=== PATIENT | female | born 1950 | race Caucasian/White ===

== ENCOUNTER → 2018-05-16 | Outpatient (CLI) | payer MEDICARE, OTHER ==
--- NOTE | 2018-05-16 14:14 | BD ---
EXAMINATION TYPE: Axial Bone Density DATE OF EXAM: 05/16/2018 COMPARISON: Prior DEXA bone scan September 10, 2010 CLINICAL HISTORY: Disorder of bone density per order. Height: 5 FT 5 1/2 IN Weight: 171 FRAX RISK QUESTIONS: Glucocorticoids (More than 3mos): YES (Ex: prednisone, prednisolone, methylprednisolone, dexamethasone, and hydrocortisone). History of Fracture in Adulthood: YES Secondary Osteoporosis: 3. Menopause before 45: YES RISK FACTORS HISTORY OF: Active: MODERATE Postmenopausal woman: AGE 47 Lost more than 2 inches in height since high school: YES MEDICATIONS: Prednisone or other steroids: ASTHMA INHALER How Lon-3 YEARS Additional Medications: QVAR, JUST STARTED ATORVASTATIN Additional History: EXAM MEASUREMENTS: Bone mineral densitometry was performed using the [employer] System. Bone mineral density as measured about the Lumbar spine is: ----- L1-L4(G/cm2): 1.255 T Score Values are as follows: ----- L2: 0.2 ----- L3: 0.6 ----- L4: 2.1 ----- L1-L4: 0.6 Bone mineral density has: INCREASED 8.3 % since study of: 2009 Bone mineral density about the R hip (g/cm2): 0.702 Bone mineral density about the L hip (g/cm2): 0.700 T Score values are as follows: -----R Neck: -2.4 -----L Neck: -2.4 -----R Total: -2.1 -----L Total: -2.3 Bone mineral density has: DECREASED -6.4 % since study of: 2009 IMPRESSION: Osteopenia (T Score between -2.5 and -1) in both hips is redemonstrated. Bone density decreased or di minished from prior. Bone density felt falsely elevated in low back due to reactive sclerosis as ther e is underlying scoliosis noted. There remains slightly increased risk of fracture and the patient may be considered for treatment. Re-Screen 2-5 years. NOTE: T-SCORE=SD OF THE YOUNG ADULT MEAN.
== END | disposition home or self-care (01) ==
LOC: RADBDWWP 13:10
PROVIDERS: ATTEND Internal Medicine
DX: M85.851 Other specified disorders of bone density and structure, right thigh (principal); M85.852 Other specified disorders of bone density and structure, left thigh; G95.89 Other specified diseases of spinal cord
CPT/HCPCS: 77080

== ENCOUNTER → 2018-08-07 | Outpatient (CLI) | payer MEDICARE, OTHER ==
--- NOTE | 2018-08-07 11:53 | US ---
EXAMINATION TYPE: US kidneys/renal and bladder DATE OF EXAM: 08/07/2018 COMPARISON: NONE CLINICAL HISTORY: R94.4 Abnormal kidney function studies. Recent abnormal labs EXAM MEASUREMENTS: Right Kidney: 11.0 x 4.0 x 4.7 cm Left Kidney: 10.4 x 5.2 x 4.6 cm Right Kidney: Appeared wnl Left Kidney: Appeared wnl Bladder: wnl Bilateral Jets seen: Yes There is no evidence for hydronephrosis at this point in time. No nephrolithiasis is seen. No estrella s are identified. The urinary bladder is anechoic. Bilateral ureteral jets are seen. IMPRESSION: Study is within normal limits.
== END | disposition home or self-care (01) ==
LOC: RADUSWWP 10:46
PROVIDERS: ATTEND Internal Medicine
DX: R94.4 Abnormal results of kidney function studies (principal)
CPT/HCPCS: 76770

== ENCOUNTER → 2019-02-01 | Outpatient (CLI) | payer MEDICARE ==
--- NOTE | 2019-02-01 10:32 | US ---
EXAMINATION TYPE: US abdomen complete DATE OF EXAM: 02/01/2019 COMPARISON: renal US dated 08/07/2018 CLINICAL HISTORY: R94.5 Abnormal results of liver function studies. EXAM MEASUREMENTS: Liver Length: 11.2 cm Gallbladder Wall: 0.2 cm CBD: 0.3 cm Spleen: 8.9 cm Right Kidney: 11.5 x 4.4 x 4.9 cm Left Kidney: 9.5 x 5.7 x 4.5 cm Pancreas: visualized portions wnl Liver: wnl Gallbladder: No stones seen Evidence for sonographic Teresa's sign: No CBD: wnl Spleen: wnl Right Kidney: No hydronephrosis or masses seen Left Kidney: No hydronephrosis or masses seen Upper IVC: wnl Abd Aorta: wnl The liver is homogenous. The intrahepatic portion of the IVC and proximal abdominal aorta are within normal limits. There is no evidence of cholelithiasis. Common bile duct is unremarkable. The visu alized portions of the pancreas are homogenous. The spleen is unremarkable. Kidneys are symmetric a nd free of hydronephrosis. No renal lesions are seen. IMPRESSION: Unremarkable abdominal ultrasound. Homogeneous hepatic echotexture despite the elevated l iver enzymes. No focal hepatic masses seen on today's examination. No sonographic evidence of choleli thiasis or acute cholecystitis.
== END | disposition home or self-care (01) ==
LOC: RADUSWWP 08:58
PROVIDERS: ATTEND Internal Medicine
DX: R94.5 Abnormal results of liver function studies (principal)
CPT/HCPCS: 76700

== ENCOUNTER → 2019-02-09 | Outpatient (CLI) | payer MEDICARE ==
--- NOTE | 2019-02-09 11:55 | CT ---
EXAMINATION TYPE: CT brain wo con DATE OF EXAM: 02/09/2019 COMPARISON: None HISTORY: Headaches CT DLP: 1053.9 mGycm Automated exposure control for dose reduction was used. TECHNIQUE: CT scan of the head is performed without contrast. FINDINGS: There is no acute intracranial hemorrhage, mass effect, or midline shift identified. The ventricles and sulci are within normal limits in size. The globes are intact. There is moderate mucosal thicken ing of the ethmoid sinuses extending into the frontal recesses with mild mucosal thickening in the fr ontal sinuses and scant mucosal thickening with inspissated secretions of the sphenoid sinuses. Polyp oid mucosal thickening of the left maxillary sinus is also present. There is some mucoperiosteal thic kening of the maxillary sinuses indicating a chronic component. Bilateral cerumen impaction is seen o f the external auditory canals. Scant fluid is seen within the inferior right mastoid air cells. Left mastoid air cells are well aerated. Punctate calcifications are noted within the frontal dermis. IMPRESSION: 1. No acute intracranial process. 2. Acute on chronic paranasal sinus disease (moderate in degree). 3. Scant amount of fluid within the right mastoid air cells. Correlate with point tenderness to exclu de mastoiditis.
== END | disposition home or self-care (01) ==
LOC: RADCTMAIN 11:18
PROVIDERS: ATTEND Internal Medicine
DX: R51 Headache (principal)
CPT/HCPCS: 70450

== ENCOUNTER → 2019-06-26 | Outpatient (CLI) | payer MEDICARE ==
--- NOTE | 2019-06-26 13:01 | US ---
EXAMINATION TYPE: US carotid duplex BILAT DATE OF EXAM: 06/26/2019 COMPARISON: NONE CLINICAL HISTORY: I65.23 Occlusion and Stenosis of Bilateral Carotid arteries. no symptoms, no h/o st roke EXAM MEASUREMENTS: RIGHT: Peak Systolic Velocity (PSV) cm/sec ----- Right CCA: 77.0 ----- Right ICA: 66.6 ----- Right ECA: 68.9 ICA/CCA ratio: 0.9 RIGHT: End Diastole cm/sec ----- Right CCA: 24.6 ----- Right ICA: 23.8 ----- Right ECA: 13.8 LEFT: Peak Systolic Velocity (PSV) cm/sec ----- Left CCA: 74.4 ----- Left ICA: 92.3 ----- Left ECA: 96.5 ICA/CCA ratio: 1.2 LEFT: End Diastole cm/sec ----- Left CCA: 26.6 ----- Left ICA: 30.8 ----- Left ECA: 17.3 VERTEBRALS (direction of flow): Right Vertebral: Antegrade Left Vertebral: Antegrade Rhythm: Normal Homogeneous plaque seen with no significant stenosis. IMPRESSION: Mild degree of grayscale atheromatous plaquing with no sonographically evident hemodynam ically significant stenosis within either visualized carotid arterial system. Criteria for Assigning % of Stenosis / Diameter reduction (Estimation based on the indirect measurements of the internal carotid artery velocities (ICA PSV). 1. Normal (no stenosis)=ICA PSV < 125 cm/s: ratio < 2.0: ICA EDV<40 cm/s. 2. Less than 50% stenosis=ICA PSV < 125 cm/s: ratio < 2.0: ICA EDV<40 cm/s. 3. 50 to 69% stenosis=ICA PSV of 125 to 230 cm/s: ration 2.0 ? 4.0: ICA EDV 40-100 cm/s. 4. Greater than 70% stenosis to near occlusion= ICA PSV > 230 cm/s: ratio > 4.0: ICA EDV > 100 cm/s. 5. Near occlusion= ICA PSV velocities may be low or undetectable: variable ratio and ICA EDV. 6. Total occlusion=unable to detect flow.
--- NOTE | 2019-06-27 11:20 | ECHOF ---
Referral Reason:I34.0 MEASUREMENTS -------- HEIGHT: 172.7 cm WEIGHT: 81.6 kg BP: IVSd: 1.2 cm (0.6 - 1.1) LVIDd: 3.9 cm (3.9 - 5.3) LVPWd: 1.0 cm (0.6 - 1.1) IVSs: 1.3 cm LVIDs: 3.1 cm LVPWs: 1.2 cm LA Diam: 2.5 cm (2.7 - 3.8) Ao Diam: 2.7 cm (2.0 - 3.7) AV Cusp: 1.9 cm (1.5 - 2.6) LA Diam: 2.8 cm (2.7 - 3.8) MV EXCURSION: 14.382 mm (> 18.000) MV EF SLOPE: 80 mm/s (70 - 150) EPSS: 0.4 cm MV E Ángel: 0.40 m/s MV DecT: 258 ms MV A Ángel: 0.68 m/s MV E/A Ratio: 0.59 RAP: 5.00 mmHg RVSP: 27.65 mmHg FINDINGS -------- Sinus rhythm. This was a technically good study. The left ventricular size is normal. There is borderline concentric left ventricular hypertrophy. Overall left ventricular systolic function is normal with, an EF between 55 - 60 %. The right ventricle is normal in size. The left atrial size is normal. The right atrial size is normal. The aortic valve is trileaflet, and appears structurally normal. No aortic stenosis or regurgitation. Mild mitral regurgitation is present. Mild tricuspid regurgitation present. There is no evidence of pulmonary hypertension. The right v entricular systolic pressure, as measured by Doppler, is 27.65mmHg. Trace/mild (physiologic) pulmonic regurgitation. The aortic root size is normal. There is no pericardial effusion. CONCLUSIONS -------- 1. The left ventricular size is normal. 2. There is borderline concentric left ventricular hypertrophy. 3. Overall left ventricular systolic function is normal with, an EF between 55 - 60 %. 4. The right ventricle is normal in size. 5. The left atrial size is normal. 6. The right atrial size is normal. 7. The aortic valve is trileaflet, and appears structurally normal. No aortic stenosis or regurgitati on. 8. Mild mitral regurgitation is present. 9. Mild tricuspid regurgitation present. 10. There is no evidence of pulmonary hypertension. 11. The right ventricular systolic pressure, as measured by Doppler, is 27.65mmHg. 12. Trace/mild (physiologic) pulmonic regurgitation. 13. The aortic root size is normal. 14. There is no pericardial effusion. PAINT TINTER: Emeli Oakes RDCS
--- NOTE | 2019-06-27 14:29 | MM ---
Reason for exam: screening (asymptomatic). Last mammogram was performed 1 year and 8 months ago. History: Patient is postmenopausal. 2 benign excisional biopsies of the right breast. Took estrogen for 8 years beginning at age 48. Took progesterone for 8 years beginning at age 48. MG 3D Screening Mammo W/Cad Bilateral CC and MLO view(s) were taken. Prior study comparison: November 01, 2017, bilateral MG 3d screening mammo w/cad. June 02, 2016, bilateral MG screening mammo w CAD. The breast tissue is heterogeneously dense. This may lower the sensitivity of mammography. There are benign-appearing bilateral breast calcification. No suspicious abnormality. No significant new finding when compared with prior studies. ASSESSMENT: Benign, BI-RAD 2 RECOMMENDATION: Routine screening mammogram of both breasts in 1 year.
== END | disposition home or self-care (01) ==
LOC: RADUSWWP 12:15
PROVIDERS: ATTEND Internal Medicine
DX: Z12.31 Encounter for screening mammogram for malignant neoplasm of breast (principal); R92.8 Other abnormal and inconclusive findings on diagnostic imaging of breast; I34.0 Nonrheumatic mitral (valve) insufficiency
CPT/HCPCS: 77063; 77067; 93306; 93880

== ENCOUNTER → 2020-07-03 | Outpatient (CLI) | payer MEDICARE ==
--- NOTE | 2020-07-03 20:58 | ECHOF ---
Referral Reason:Tachycardia R00.0 MEASUREMENTS -------- HEIGHT: 167.6 cm WEIGHT: 81.6 kg BP: IVSd: 1.4 cm (0.6 - 1.1) LVIDd: 3.6 cm (3.9 - 5.3) LVPWd: 1.3 cm (0.6 - 1.1) IVSs: 1.7 cm LVIDs: 2.5 cm LVPWs: 1.7 cm RVIDd: 3.8 cm (< 3.3) LAESV Index (A-L): 15.20 ml/m Ao Diam: 2.5 cm (2.0 - 3.7) AV Cusp: 2.0 cm (1.5 - 2.6) EPSS: 0.3 cm MV E Ángel: 0.69 m/s MV DecT: 225 ms MV A Ángel: 0.82 m/s MV E/A Ratio: 0.84 RAP: 5.00 mmHg RVSP: 35.03 mmHg MV EF SLOPE: 125.93 mm/s (70 - 150) MV EXCURSION: 17.15 mm (> 18.000) FINDINGS -------- Sinus rhythm. This was a technically adequate study. The left ventricular size is normal. There is mild concentric left ventricular hypertrophy. Overa ll left ventricular systolic function is normal with, an EF between 55 - 60 %. The diastolic fillin g pattern is normal for the age of the patient 16.97. The right ventricle is mildly enlarged. Normal LA size by volume 22+/-6 ml/m2. The right atrial size is normal. Interatrial and interventricular septum intact. The aortic valve is trileaflet and appears structurally normal. There is no evidence of aortic regu rgitation. There is no evidence of aortic stenosis. Mild mitral regurgitation is present. Mild tricuspid regurgitation present. There is mild pulmonary hypertension. The right ventricular systolic pressure, as measured by Doppler, is 35.03mmHg. Trace/mild (physiologic) pulmonic regurgitation. The aortic root size is normal. Normal inferior vena cava with normal inspiratory collapse consistent with estimated right atrial pre ssure of 5 mmHg. There is no pericardial effusion. CONCLUSIONS -------- 1. The left ventricular size is normal. 2. There is mild concentric left ventricular hypertrophy. 3. Overall left ventricular systolic function is normal with, an EF between 55 - 60 %. 4. The diastolic filling pattern is normal for the age of the patient 16.97 5. The right ventricle is mildly enlarged. 6. Mild mitral regurgitation is present. 7. Mild tricuspid regurgitation present. 8. There is mild pulmonary hypertension. 9. The right ventricular systolic pressure, as measured by Doppler, is 35.03mmHg. 10. Trace/mild (physiologic) pulmonic regurgitation. SYSTEMS TEST TECHNICIAN: Jessica Christian RDCS
== END | disposition home or self-care (01) ==
LOC: RADECHMAIN 11:46
PROVIDERS: ATTEND Internal Medicine
DX: I08.1 Rheumatic disorders of both mitral and tricuspid valves (principal); I27.20 Pulmonary hypertension, unspecified; Z92.21 Personal history of antineoplastic chemotherapy
CPT/HCPCS: 93306

== ENCOUNTER → 2020-09-02 | Outpatient (CLI) | payer MEDICARE ==
--- NOTE | 2020-09-02 16:31 | CT ---
EXAMINATION TYPE: CT ChestAbdPelvis w con DATE OF EXAM: 09/02/2020 INDICATION: uterine CA COMPARISON: None CT DLP: 1229.5 mGycm CONTRAST: Performed with Oral Contrast and with IV Contrast, patient injected with 100 mL of Isovue 300. TECHNIQUE: Axial images at 5 mm thick sections. Reconstructed images in the coronal plane. Delayed images through the kidneys. FINDINGS: CT CHEST: Portion of the thyroid visualized is normal. No suspicious lung nodules or focal infiltrates are present. No enlarged mediastinal or hilar adenopathy is evident. The ascending aorta diameter at the level of the main pulmonary artery is 3.4 cm. The main pulmonary artery diameter at the bifurcation is 2.2 cm. Small hiatal hernia is present. CT ABDOMEN: Liver: Some mild fatty infiltration liver is present. Spleen: Normal Pancreas: Normal Adrenal glands: The adrenal glands are normal. Gallbladder: Normal Kidneys: No masses are evident. No hydronephrosis is present. No cysts are present. Delayed images were obtained through the kidneys, which remain unremarkable. Aorta: Normal Inferior vena cava: Normal. CT PELVIS: Loops of bowel within the abdomen and pelvis are normal. Some fecal debris is within the colon. Th ere are loops of bowel which are incompletely distended or lack oral contrast limiting their evaluati on. Appendix: Normal as visualized. Urinary bladder: Normal. Genitourinary structures: Uterus and ovaries are not identified. Osseous structures: No suspicious lytic or sclerotic lesions. Degenerative changes are through the sc oliotic lumbar spine. Degenerative disc changes are present within the lumbar spine. IMPRESSIONS: 1. Small hiatal hernia. 2. Mild fatty infiltration liver. 3. No suspicious changes to suggest metastatic disease
== END | disposition home or self-care (01) ==
LOC: RADCTMAIN 11:27
PROVIDERS: ATTEND Internal Medicine Hematology & Oncology
DX: K76.0 Fatty (change of) liver, not elsewhere classified (principal); C54.9 Malignant neoplasm of corpus uteri, unspecified; Z91.048 Other nonmedicinal substance allergy status
CPT/HCPCS: 82565; 84520; 71260; 74177; 36415; Q9967

== ENCOUNTER → 2020-11-13 | Outpatient (CLI) | payer MEDICARE ==
--- NOTE | 2020-11-14 10:49 | MM ---
Reason for exam: screening (asymptomatic). Last mammogram was performed 1 year and 5 months ago. History: Patient is postmenopausal. 2 benign excisional biopsies of the right breast. Took estrogen for 8 years beginning at age 48. Took progesterone for 8 years beginning at age 48. Physical Findings: A clinical breast exam by your physician is recommended on an annual basis and results should be correlated with mammographic findings. MG 3D Screening Mammo W/Cad Bilateral CC and MLO view(s) were taken. Prior study comparison: June 26, 2019, bilateral MG 3d screening mammo w/cad. November 01, 2017, bilateral MG 3d screening mammo w/cad. The breast tissue is heterogeneously dense. This may lower the sensitivity of mammography. Stable benign calcifications. There is no discrete abnormality. No significant changes when compared with prior studies. ASSESSMENT: Benign, BI-RAD 2 RECOMMENDATION: Routine screening mammogram of both breasts in 1 year.
== END | disposition home or self-care (01) ==
LOC: RADMAMWWP 13:46
PROVIDERS: ATTEND Internal Medicine
DX: Z12.31 Encounter for screening mammogram for malignant neoplasm of breast (principal)
CPT/HCPCS: 77063; 77067

== ENCOUNTER → 2020-12-11 | Outpatient (CLI) | payer MEDICARE ==
--- NOTE | 2020-12-11 12:47 | BD ---
EXAMINATION TYPE: Axial Bone Density DATE OF EXAM: 12/11/2020 COMPARISON: 05.16.2018 CLINICAL HISTORY: 70 YR OLD FEMALE.....ICD-10 CODE: M81.0 AGE RELATED OSTEOPOROSIS Height: 65.4 Weight: 181 FRAX RISK QUESTIONS: Glucocorticoids (More than 3mos): YES (Ex: prednisone, prednisolone, methylprednisolone, dexamethasone, and hydrocortisone). RISK FACTORS HISTORY OF: Active: YES Postmenopausal woman: YES, AT AGE 50 YRS OLD Take estrogen and/or progesterone medications: YES, FOR ABOUT 1-2 YRS IN THE PAST Lost more than 2 inches in height since high school: YES Hyperparathyroidism: NO Adrenal Insufficiency: NO MEDICATIONS: Prednisone or other steroids: FOR ASTHMA, STEROIDS AND INHALATION STEROIDS How Long: MANY YRS Osteoporosis Medications: YES, FOSAMAX, FOR ABOUT 3 YRS Additional Medications: HX OF UTERINE CA, HX OF RADIATION AND CHEMO. , STATIN FOR CHOLESTEROL, VIT D AND CALCIUM Additional History: HX OF UTERINE CA, CHOLESTEROL, EXAM MEASUREMENTS: Bone mineral densitometry was performed using the [employer] System. Bone mineral density as measured about the Lumbar spine is: ----- L1-L4(G/cm2): 1.460 T Score Values are as follows: ----- L1: 0.9 ----- L2: 1.2 ----- L3: 2.8 ----- L4: 3.8 ----- L1-L4: 2.3 Bone mineral density has: Increased 15.2% since study of: 05.16.2018 Bone mineral density about the R hip (g/cm2): 0.795 Bone mineral density about the L hip (g/cm2): 0.708 T Score values are as follows: -----R Neck: -1.2 -----L Neck: -2.4 -----R Total: -1.7 -----L Total: -2.4 Bone mineral density has: Increased 3.0% since study of: 05.16.2018 FRAX%s: THERE IS A 32.7% CHANCE FOR A MAJOR OSTEOPOROTIC FX AND A 3.0% FOR HIP......PROBABILITY FO R FX IN 10 YRS TIME IMPRESSION: Osteopenia (T Score between -2.5 and -1) remains present. Bone density slightly increased from recent prior. There remains slightly increased risk of fracture and the patient may be considered for treatment. Re-Screen 2-5 years. NOTE: T-SCORE=SD OF THE YOUNG ADULT MEAN.
== END | disposition home or self-care (01) ==
LOC: RADBDWWP 10:29
PROVIDERS: ATTEND Internal Medicine
DX: M85.80 Other specified disorders of bone density and structure, unspecified site (principal); M81.0 Age-related osteoporosis without current pathological fracture
CPT/HCPCS: 77080

== ENCOUNTER → 2021-09-07 | Outpatient (CLI) | payer MEDICARE ==
--- NOTE | 2021-09-07 13:16 | CT ---
EXAMINATION TYPE: CT ChestAbdPelvis w con DATE OF EXAM: 09/07/2021 INDICATION: Uterine CA COMPARISON: 09/02/2020 CT DLP: 1119.2 mGycm CONTRAST: Performed with Oral Contrast and with IV Contrast, patient injected with 80 mL of Isovue 300. TECHNIQUE: Axial images at 5 mm thick sections. Reconstructed images in the coronal plane. Delayed images through the kidneys. FINDINGS: CT CHEST: Portion of the thyroid visualized is normal. No suspicious lung nodules or focal infiltrates are present. No enlarged mediastinal or hilar adenopathy is evident. The ascending aorta diameter at the level of the main pulmonary artery is 3.4 cm. The main pulmonary artery diameter at the bifurcation is 2.1 cm. There is small hiatal hernia with some minimal reflux is present. CT ABDOMEN: Liver: There is some mild fatty infiltration of the liver Spleen: Normal Pancreas: Normal Adrenal glands: The adrenal glands are normal. Gallbladder: Normal Kidneys: No masses are evident. No hydronephrosis is present. No cysts are present. Delayed images were obtained through the kidneys, which remain unremarkable. Aorta: Vascular calcification is within the aorta. Inferior vena cava: Normal. CT PELVIS: Loops of bowel within the abdomen and pelvis are normal. There are loops of bowel which are incom pletely distended or lack oral contrast limiting their evaluation. Appendix: Normal as visualized. Urinary bladder: Normal. Genitourinary structures: Uterus and ovaries are not identified. No recurrent masses are evident. No suspicious pelvic adenopathy is evident. Osseous structures: No suspicious lytic or sclerotic lesions. Small lucency is at the right T12 verte bral body may be a hemangioma. Borders appear somewhat smooth suggesting a lytic lesion to be less li trena. This was present previously. Facet degenerative changes are present within the lumbar spine. IMPRESSIONS: 1. No suspicious abnormality suggest recurrent or metastatic disease. 2. Hiatal hernia with minimal reflux. 3. Mild fatty infiltration of liver
== END | disposition home or self-care (01) ==
LOC: RADCTMAIN 09:31
PROVIDERS: ATTEND Internal Medicine Hematology & Oncology
DX: C55 Malignant neoplasm of uterus, part unspecified (principal); K76.0 Fatty (change of) liver, not elsewhere classified; K21.9 Gastro-esophageal reflux disease without esophagitis
CPT/HCPCS: 82565; 84520; 71260; 74177; 36415; Q9967 ×2

== ENCOUNTER → 2022-03-01 | Outpatient (CLI) | payer MEDICARE ==
--- NOTE | 2022-03-02 10:54 | MM ---
Reason for exam: screening (asymptomatic). Last mammogram was performed 1 year and 4 months ago. History: Patient is postmenopausal and has history of other cancer at age 71. 2 benign excisional biopsies of the right breast. Took estrogen for 8 years beginning at age 48. Took progesterone for 8 years beginning at age 48. Physical Findings: A clinical breast exam by your physician is recommended on an annual basis and results should be correlated with mammographic findings. MG 3D Screening Mammo W/Cad Bilateral CC and MLO view(s) were taken. Prior study comparison: November 13, 2020, bilateral MG 3d screening mammo w/cad. June 26, 2019, bilateral MG 3d screening mammo w/cad. The breast tissue is extremely dense which could obscure a lesion on mammography. No significant changes when compared with prior studies. ASSESSMENT: Benign, BI-RAD 2 RECOMMENDATION: Routine screening mammogram of both breasts in 1 year.
== END | disposition home or self-care (01) ==
LOC: RADMAMWWP 10:52
PROVIDERS: ATTEND Internal Medicine
DX: Z12.31 Encounter for screening mammogram for malignant neoplasm of breast (principal); Z78.0 Asymptomatic menopausal state
CPT/HCPCS: 77063; 77067

== ENCOUNTER → 2022-08-30 | Outpatient (CLI) | payer MEDICARE ==
--- NOTE | 2022-08-30 11:50 | CT ---
EXAMINATION TYPE: CT ChestAbdPelvis w con DATE OF EXAM: 08/30/2022 COMPARISON: Prior CT September 07, [address] HISTORY: Uterine cancer progress study CT DLP: 2214 mGycm. Automated Exposure Control for Dose Reduction was Utilized. CONTRAST: CT scan of the thorax, abdomen and pelvis is performed with oral and with IV Contrast, patient inject ed with 100 mL of Isovue 300. FINDINGS: LUNGS: The lungs are grossly clear, there is no new concerning greater than 5 mm parenchymal mass or nodule identified. There is no pleural effusion or pneumothorax seen. The tracheobronchial tree is patent. MEDIASTINUM: There are no new greater than 1 cm hilar or mediastinal lymph nodes. No cardiomegaly o r pericardial effusion is seen. LIVER/GB: No significant abnormality is appreciated. PANCREAS: No significant abnormality is seen. SPLEEN: No significant abnormality is seen. ADRENALS: No significant abnormality is seen. KIDNEYS: Moderately distended bladder on current study. Mild right renal pelvic fullness and proximal hydroureter with no delayed excretion or significant calyceal dilatation. BOWEL: Stable small sized hiatal hernia. Oral contrast reaches the level of the cecum on prior study. No suspicious small or large bowel dilatation. GENITAL ORGANS: Uterus surgically absent. LYMPH NODES: No new greater than 1cm abdominal or pelvic lymph nodes are appreciated. OSSEOUS STRUCTURES: Levoconvex scoliosis centered at L3-L4 level is redemonstrated. Spine is straight ened on sagittal images with multilevel disc space narrowing and vacuum disc phenomenon. Severe findi ngs noted at the left L1-L2 along with the right L3-L4 levels with endplate sclerosis. OTHER: No significant additional abnormality is seen. IMPRESSION: Posthysterectomy changes redemonstrated. No suspicious new mass or adenopathy to suggest neoplastic recurrence.
== END | disposition home or self-care (01) ==
LOC: RADCTMAIN 09:12
PROVIDERS: ATTEND Internal Medicine Hematology & Oncology
DX: C54.9 Malignant neoplasm of corpus uteri, unspecified (principal)
CPT/HCPCS: 82565; 84520; 71260; 74177; 36415; Q9967

== ENCOUNTER → 2023-03-02 | Outpatient (CLI) | payer MEDICARE ==
--- NOTE | 2023-03-03 08:51 | MM ---
Reason for Exam: Screening (asymptomatic). Last screening mammogram was performed 12 month(s) ago. Patient History: Menarche at age 16. First Full-Term at age 27. Left ovary removed at age 71. Right ovary removed at age 71. Hysterectomy at age 71. Postmenopausal. Other cancer, age 71. Estrogen for 8 years from age 48 until age 56. Progesterone for 8 years from age 48 until age 56. Benign Excisional Biopsy on the right side. Benign Excisional Biopsy on the right side. Risk Values: Suzanne 5 year model risk: 2.6%. NCI Lifetime model risk: 7.3%. Prior Study Comparison: 06/26/2019 Bilateral Screening Mammogram, [facility]. 11/13/2020 Bilateral Screening Mammogram, [facility]. 03/01/2022 Bilateral Screening Mammogram, [facility]. Tissue Density: The breast tissue is heterogeneously dense. This may lower the sensitivity of mammography. Findings: Analyzed By CAD. There is no suspicious group of microcalcifications or new suspicious mass in either breast. Overall Assessment: Benign, BI-RAD 2 Management: Screening Mammogram of both breasts in 1 year. A clinical breast exam by your physician is recommended on an annual basis and results should be correlated with mammographic findings. Electronically signed and approved by: Ethan Potts M.D. Radiologis
--- NOTE | 2023-03-03 17:02 | BD ---
EXAMINATION TYPE: Axial Bone Density DATE OF EXAM: 03/02/2023 CLINICAL HISTORY: 73 years old Female. ICD-10 CODE: M85.852 OTH DISRD OF BONE DENSITY AND STRUCTURE, LEFT THIGH Height: 64.5 in Weight: 175 lbs FRAX RISK QUESTIONS: History of Fracture in Adulthood: rt foot fx age 53 RISK FACTORS HISTORY OF: Active: yes Diet low in dairy products/other sources of calcium: yes Postmenopausal woman: age 47; total hyst age 70 MEDICATIONS: Osteoporosis Medications: yes Which medication: alendronate sodium How Lon years Additional Medications: calcium, vit d, atorvastatin, metoprolol, gabapentin, Additional History: uterine cancer with chemo and radiation EXAM MEASUREMENTS: Bone mineral densitometry was performed using the 3TIER System. Bone mineral density as measured about the Lumbar spine is: ----- L1-L4(G/cm2): 1.548 T Score Values are as follows: ----- L1: 1.3 ----- L2: 3.8 ----- L3: 3.0 ----- L4: 3.8 ----- L1-L4: 3.1 Z Score Values are as follows: ----- L1: 2.5 ----- L2: 5.0 ----- L3: 4.2 ----- L4: 5.0 ----- L1-L4: 4.3 Bone mineral density has: Increased 6.0% since study of: 12/11/2020 Bone mineral density about the R hip (g/cm2): 0.831 Bone mineral density about the L hip (g/cm2): 0.744 T Score values are as follows: -----R Neck: -1.1 -----L Neck: -2.8 -----R Total: -1.4 -----L Total: -2.1 Z Score values are as follows: -----R Neck: 0.3 -----L Neck: -1.4 -----R Total: -0.2 -----L Total: -0.9 Bone mineral density has: Increased 4.9% since study of: 12/11/2020 FRAX%s: The graph provided illustrates a 39.2% chance for a major osteoporotic fx and a 14.2% chance for the hips probability for fx in 10 years time. IMPRESSION: Osteoporosis (T Score less than -2.5). There is increased fracture risk and therapy is usually indicated based on age. Re-Screen 1-2 years. NOTE: T-SCORE=SD OF THE YOUNG ADULT MEAN.
== END | disposition home or self-care (01) ==
LOC: RADMAMWWP 15:11
PROVIDERS: ATTEND Internal Medicine
DX: Z12.31 Encounter for screening mammogram for malignant neoplasm of breast (principal); M85.89 Other specified disorders of bone density and structure, multiple sites; M81.0 Age-related osteoporosis without current pathological fracture; Z78.0 Asymptomatic menopausal state
CPT/HCPCS: 77063; 77067; 77080

== ENCOUNTER 2023-08-16 10:36 | Day surgery (SDC) | payer MEDICARE ==
[2023-08-11 16:08] VITALS: BMI 25.8
[~2023-08-16 10:36] MED LIST: LACTATED RINGERS 1,000 ML IV SCH
[2023-08-16 11:20] VITALS: TEMP 98.6
[2023-08-16] MEDS ORDERED: PROPOFOL 10 MG/ML 20 ML VIAL IV ONE (11:39)
--- NOTE | 2023-08-16 11:45 | P.GSHP ---
History of Present Illness H&P Date: 08/16/23 Chief Complaint: Colon cancer screening 73-year-old female here for colonoscopy. Last colonoscopy 2016. Patient had polyps on the colonoscopy prior to that. No bowel complaints. Personal history of uterine cancer. Past Medical History Past Medical History: Asthma, Cancer, Hyperlipidemia, Hypertension Additional Past Medical History / Comment(s): serous carcinoma uterine 2020 History of Any Multi-Drug Resistant Organisms: None Reported Past Surgical History: Breast Surgery, Hysterectomy Additional Past Surgical History / Comment(s): 2 Br Biopsies; eye surgery, hemorroidectomy Past Anesthesia/Blood Transfusion Reactions: Motion Sickness, Postoperative Nausea & Vomiting (PONV) Smoking Status: Never smoker - Past Family History Mother Family Medical History: No Reported History Father Family Medical History: Cancer Additional Family Medical History / Comment(s): esophagus Medications and Allergies Home Medications Medication Instructions Recorded Confirmed Type Albuterol Inhaler [Ventolin Hfa 1 puff INHALATION TID PRN 08/11/23 08/16/23 History Inhaler] Alendronate Sodium/Vitamin D3 1 tab PO WEEKLY 08/11/23 08/16/23 History [Fosamax Plus D 70 mg-2800 Unit] Atorvastatin [Lipitor] 10 mg PO HS 08/11/23 08/16/23 History Citalopram Hydrobromide [CeleXA] 10 mg PO DAILY 08/11/23 08/16/23 History Gabapentin 800 mg PO BID 08/11/23 08/16/23 History Metoprolol Tartrate 25 mg PO BID 08/11/23 08/16/23 History Allergies Allergy/AdvReac Type Severity Reaction Status Date / Time No Known Allergies Allergy Verified 08/16/23 11:02 Surgical - Exam Vital Signs Temp Pulse Resp BP Pulse Ox 98.6 F 75 16 138/68 97 08/16/23 11:15 08/16/23 11:15 08/16/23 11:15 08/16/23 11:15 08/16/23 11:15 Physical exam: General: Well-developed, well-nourished HEENT: Normocephalic, sclerae nonicteric Abdomen: Nontender, nondistended Extremities: No edema Neuro: Alert and oriented Assessment and Plan (1) Colon cancer screening Narrative/Plan: Will proceed with colonoscopy at this time. Current Visit: Yes Status: Acute Code(s): Z12.11 - ENCOUNTER FOR SCREENING FOR MALIGNANT NEOPLASM OF COLON SNOMED Code(s): 851173888
--- NOTE | 2023-08-16 12:08 | P.PCN ---
Date of Procedure: 08/16/23 Procedure(s) Performed: PREOPERATIVE DIAGNOSIS: Screening POSTOPERATIVE DIAGNOSIS: Polyps PROCEDURE: Colonoscopy with snare polypectomy and clip placement ANESTHESIA: MAC SURGEON: Elie Dooley M.D. SPECIMENS: Multiple polyps ENDOSCOPIC PROCEDURE: The patient was placed on the endoscopy table in the left decubitus position. The Olympus colonoscope was inserted into the anus and passed under direct visualization to the base of the cecum. The appendiceal orifice was visualized. From that point the scope was slowly withdrawn inspecting all surfaces carefully. At the base of the cecum there was a sessile polyp removed using the snare with cautery technique. A clip was deployed there are given the propensity for bleeding. Any ascending colon another small polyp was seen and removed using snare with cautery technique. The transverse and descending colon appeared normal. In the sigmoid colon another small polyp was removed in a similar fashion and a rectal polyp again removed in a similar fashion. No visible diverticulosis was seen. Digital rectal examination was normal. The patient was taken to the recovery room in stable condition per anesthesia guidelines. RECOMMENDATIONS: Await biopsy results. Plan repeat colonoscopy 5 years.
[2023-08-16 12:37] VITALS: BP 128/80; PULSE 57; RESP 20
== END 2023-08-16 13:10 ==
LOC: ORWHC2ENDO 10:36
PROVIDERS: ATTEND Surgery
DX: Z12.11 Encounter for screening for malignant neoplasm of colon (principal); D12.0 Benign neoplasm of cecum; D12.2 Benign neoplasm of ascending colon; D12.5 Benign neoplasm of sigmoid colon; D12.8 Benign neoplasm of rectum; E78.5 Hyperlipidemia, unspecified; J45.909 Unspecified asthma, uncomplicated; M19.90 Unspecified osteoarthritis, unspecified site; G62.9 Polyneuropathy, unspecified; I10 Essential (primary) hypertension; Z85.42 Personal history of malignant neoplasm of other parts of uterus; Z79.899 Other long term (current) drug therapy; Z79.51 Long term (current) use of inhaled steroids; Z79.811 Long term (current) use of aromatase inhibitors
CPT/HCPCS: 88305; 45382; 45385; J2704

== ENCOUNTER → 2024-03-06 | Outpatient (CLI) | payer MEDICARE ==
--- NOTE | 2024-03-07 15:22 | MM ---
Reason for Exam: Screening (asymptomatic). Last screening mammogram was performed 12 month(s) ago. Patient History: Menarche at age 16. First Full-Term at age 27. Left ovary removed at age 71. Right ovary removed at age 71. Hysterectomy at age 71. Postmenopausal. Estrogen for 8 years from age 48 until age 56. Progesterone for 8 years from age 48 until age 56. Benign Excisional Biopsy on the right side. Benign Excisional Biopsy on the right side. Risk Values: Suzanne 5 year model risk: 2.7%. NCI Lifetime model risk: 6.9%. Prior Study Comparison: 11/13/2020 Bilateral Screening Mammogram, [facility]. 03/01/2022 Bilateral Screening Mammogram, [facility]. 03/02/2023 Bilateral MG 3D screening mammo w/cad, [facility]. Tissue Density: The breasts are heterogeneously dense, which may obscure small masses. Findings: Analyzed By CAD. There is no suspicious group of microcalcifications or new suspicious mass in either breast. Overall Assessment: Benign, BI-RAD 2 Management: Screening Mammogram of both breasts in 1 year. . Patient should continue monthly self-breast exams. A clinical breast exam by your physician is recommended on an annual basis. This exam should not preclude additional follow-up of suspicious palpable abnormalities. Note on Suzanne scores and lifetime risk: 1. A Suzanne score greater than 3% is considered moderate risk. If this is the case, consider specialist referral to assess eligibility for a risk reducing agent. 2. If overall lifetime risk for the development of breast cancer is 20% or higher, the patient may qualify for future screening with alternating mammogram and breast MRI. Electronically signed and approved by: Ethan Potts M.D. Radiologis
== END | disposition home or self-care (01) ==
LOC: RADMAMWWP 09:52
PROVIDERS: ATTEND Internal Medicine
DX: Z12.31 Encounter for screening mammogram for malignant neoplasm of breast (principal); Z78.0 Asymptomatic menopausal state
CPT/HCPCS: 77063; 77067

== ENCOUNTER → 2024-09-03 | Outpatient (CLI) | payer MEDICARE ==
[2024-09-03 11:13] LABS: African American GFR (CKD) 72 (>60 ml/min/1.73 sqM); Blood Urea Nitrogen 16 mg/dL (7-17); Non-African American GFR(CKD) 62 (>60 ml/min/1.73 sqM)
--- NOTE | 2024-09-03 13:09 | CT ---
EXAMINATION TYPE: CT ChestAbdPelvis w con CT DLP: 1583 mGycm, Automated exposure control for dose reduction was used. DATE OF EXAM: 09/03/2024 12:36 PM COMPARISON: Multiple CT chest abdomen and pelvis with most recent 08/30/2023 CLINICAL INDICATION:Female, 74 years old with history of C59.4 uterine ca; PH[facility], UTERINE CANCER Technique: Multiple axial images of the chest, abdomen, and pelvis were obtained following the intrav enous administration of 100 mL Isovue-300. Oral contrast was administered. Two-dimensional coronal an d sagittal reconstructions were obtained. Findings: CHEST: LUNGS/ PLEURA: Biapical pleural-parenchymal scarring redemonstrated. No suspicious pulmonary nodule o r mass. No pleural effusion, pneumothorax, or focal consolidation. AIRWAY: Patent and unremarkable.. HEART: Size within normal limits. No pericardial effusion. MEDIASTINUM: No evidence of adenopathy. VASCULATURE: No aortic aneurysm. MUSCULOSKELETAL: No acute osseous abnormalities. No aggressive osseous lesion. SOFT TISSUES/LYMPH NODES: Unremarkable. LOWER NECK: No significant findings. ABDOMEN: ABDOMEN LIVER: Unremarkable GALLBLADDER AND BILE DUCTS: Unremarkable. PANCREAS: Unremarkable. SPLEEN: Unremarkable. ADRENAL GLANDS: Unremarkable. KIDNEYS AND URETERS: No evidence of hydronephrosis or renal calculus. The kidneys enhance symmetrical ly. Contrast is demonstrated within both collecting systems on the delayed phase. PELVIS BLADDER: Unremarkable REPRODUCTIVE: The uterus is surgically absent. No evidence of vaginal cuff mass. ABDOMEN & PELVIS STOMACH AND BOWEL: Small hiatal hernia, duodenum is unremarkable. Enteric contrast reaches the descen ding colon. Redundant sigmoid colon. No evidence of bowel obstruction. PERITONEUM: No evidence of pneumoperitoneum or free fluid. VASCULATURE: No evidence of aortic aneurysm. Pelvic phleboliths. MUSCULOSKELETAL: No acute osseous abnormalities. Levocurvature of the lumbar spine. No aggressive oss eous lesion. Degenerative disease of the lumbar spine. LYMPH NODES: No evidence for lymphadenopathy. SOFT TISSUE/ABDOMINAL WALL: Unremarkable IMPRESSION: Posthysterectomy changes redemonstrated without evidence for recurrent mass or metastatic disease. [facility], , 09/03/2024 1:07 PM
== END | disposition home or self-care (01) ==
LOC: RADCTMAIN 10:35
PROVIDERS: ATTEND Internal Medicine Hematology & Oncology
DX: C54.9 Malignant neoplasm of corpus uteri, unspecified
CPT/HCPCS: 36415; 71260; 74177; 82565; 84520

== ENCOUNTER → 2025-05-28 | Outpatient (CLI) | payer MEDICARE ==
--- NOTE | 2025-05-28 17:27 | BD ---
EXAMINATION TYPE: Axial Bone Density DATE OF EXAM: 05/28/2025 CLINICAL HISTORY: 75 years old Female. ICD-10 CODE: [id number] OSTEO OF LEFT HIP , Additional History: Height: 65 Weight: 165.5 FRAX RISK QUESTIONS: Alcohol (3 or more units per day): no Family History (Parent hip fracture): no Glucocorticoids (More than 3mos): no (Ex: prednisone, prednisolone, methylprednisolone, dexamethasone, and hydrocortisone). History of Fracture in Adulthood: foot Secondary Osteoporosis: 1. Type 1 Diabetes: no 2. Hyperthyroidism: no 3. Menopause before 45: no 4. Malnutrition: no 5. Chronic liver disease: no Rheumatoid Arthritis: no Current Tobacco Use: no RISK FACTORS HISTORY OF: Hip Fracture (Right/Left): no Spine Fracture: no History of Wrist Fracture: no Surgery to Spine/Hip(right/left)/Wrist (right/left): no MEDICATIONS: Thyroid Medications: no Osteoporosis Medications: yes, Alendronate weekly How Long: past 5 years EXAM MEASUREMENTS: Bone mineral densitometry was performed using the [employer] System. Bone mineral density as measured about the Lumbar spine is: ----- L1-L4(G/cm2): 1.555 T Score Values are as follows: ----- L1: 1.8 ----- L2: 3.8 ----- L3: 3.7 ----- L4: 2.9 ----- L1-L4: 3.1 Z Score Values are as follows: ----- L1: 3.2 ----- L2: 5.2 ----- L3: 5.1 ----- L4: 4.3 ----- L1-L4: 4.5 Bone mineral density has: increased 0.5 since the study of 03/02/2023 Bone mineral density about the R hip (g/cm2): 0.792 Bone mineral density about the L hip (g/cm2): 0.695 T Score values are as follows: -----R Neck: -1.9 -----L Neck: -1.9 -----R Total: -1.78 -----L Total: -2.5 Z Score values are as follows: -----R Neck: -0.3 -----L Neck: -0.3 -----R Total: -0.3 -----L Total: -1.1 Bone mineral density has: decreased -5.6% since the study of 03/02/2023 FRAX%s: The graph provided illustrates a 28.7chance for a major osteoporotic fx and a 7.2chance for t he hips probability for fx in 10 years time. IMPRESSION: Osteoporosis (T Score less than -2.5). There is increased fracture risk and therapy is usually indicated based on age. Re-Screen 1-2 years. NOTE: T-SCORE=SD OF THE YOUNG ADULT MEAN. [facility], , 05/28/2025 5:24 PM
--- NOTE | 2025-05-29 08:15 | MM ---
Reason for Exam: Screening (asymptomatic). Last mammogram was performed 1 year(s) and 3 month(s) ago. Patient History: Menarche at age 16. First Full-Term at age 27. Left ovary removed at age 71. Right ovary removed at age 71. Hysterectomy at age 71. Postmenopausal. Estrogen for 8 years from age 48 until age 56. Progesterone for 8 years from age 48 until age 56. Benign Excisional Biopsy on the right side. Benign Excisional Biopsy on the right side. Risk Values: Suzanne 5 year model risk: 2.7%. NCI Lifetime model risk: 6.5%. Prior Study Comparison: 03/01/2022 Bilateral Screening Mammogram, [facility]. 03/02/2023 Bilateral MG 3D screening mammo w/cad, [facility]. 03/06/2024 Bilateral MG 3D screening mammo w/cad, [facility]. Tissue Density: The breasts are heterogeneously dense, which may obscure small masses. Findings: Analyzed By CAD. A few scattered punctate and secretory calcifications are unchanged. There is no suspicious group of microcalcifications or new suspicious mass in either breast. Overall Assessment: Benign, BI-RAD 2 Management: Screening Mammogram of both breasts in 1 year. Patient should continue monthly self-breast exams. A clinical breast exam by your physician is recommended on an annual basis. This exam should not preclude additional follow-up of suspicious palpable abnormalities. Note on Suzanne scores and lifetime risk: 1. A Suzanne score greater than 3% is considered moderate risk. If this is the case, consider specialist referral to assess eligibility for a risk reducing agent. 2. If overall lifetime risk for the development of breast cancer is 20% or higher, the patient may qualify for future screening with alternating mammogram and breast MRI. [facility], , 05/29/2025 8:09 AM. Electronically signed and approved by: Alexis Cuello M.D. Radiologist
== END | disposition home or self-care (01) ==
LOC: RADMAMWWP 15:25
PROVIDERS: ATTEND Internal Medicine
DX: Z12.31 Encounter for screening mammogram for malignant neoplasm of breast (principal); R92.333 Mammographic heterogeneous density, bilateral breasts; M85.89 Other specified disorders of bone density and structure, multiple sites; Z78.0 Asymptomatic menopausal state; M81.0 Age-related osteoporosis without current pathological fracture
CPT/HCPCS: 77063; 77067; 77080

== ENCOUNTER → 2025-06-03 | Outpatient (CLI) | payer MEDICARE ==
--- NOTE | 2025-06-03 13:49 | CT ---
EXAMINATION TYPE: CT brain wo con DATE OF EXAM: 06/03/2025 1:34 PM COMPARISON: None. CLINICAL INDICATION: Female, 75 years old with history of R41.0 ACUTE CONFUSION, confusion TECHNIQUE: CT of the brain is performed utilizing 3 mm thick sections through the posterior fossa and 3 mm thick sections through the remaining calvarium. Study is performed within 24 hours of arrival to the hospital. Contrast used: mL of , (none if empty) CT DLP: 1204 mGycm, Automated exposure control for dose reduction was used. FINDINGS: No abnormal hyperdensity is present to suggest an acute intracranial hemorrhage. No mass lesion is evident. No acute infarcts are evident. Ventricles and sulci are appropriate for the patient age. Paranasal sinuses and mastoid air cells within the [id number] are clear. IMPRESSION: 1. No acute intracranial process. Follow up MRI can be performed as clinically indicated. [facility], , 06/03/2025 1:47 PM
== END | disposition home or self-care (01) ==
LOC: RADCTMAIN 13:06
PROVIDERS: ATTEND Internal Medicine
DX: R41.0 Disorientation, unspecified (principal)
CPT/HCPCS: 70450